=== PATIENT | female | born 1980 | race Caucasian/White ===

== ENCOUNTER → 2024-08-10 | Outpatient (CLI) | payer OTHER ==
--- NOTE | 2024-08-10 13:24 | USB ---
Reason for Exam: Clinical finding. Risk Values: Lucie 5 year model risk: 0.5%. NCI Lifetime model risk: 6.5%. Technique: Method: Targeted. Findings: The area of palpable concern of the left breast, the axilla of the left breast and the retroareolar of the left breast were scanned. No definitive solid or cystic masses are identified. The mammographic finding stereotactic core biopsy is advised. Overall Assessment: Suspicious, BI-RAD 4 Management: Stereotactic Core Biopsy of the left breast. A clinical breast exam by your physician is recommended on an annual basis and results should be correlated with mammographic findings. This exam should not preclude additional follow-up of suspicious palpable abnormalities. Results were given to the patient verbally at the time of exam. [facility], , 08/10/2024 1:21 PM. Electronically signed and approved by: Patricio Ryan M.D. Radiologis
== END | disposition home or self-care (01) ==
LOC: RADUSWWP 13:04
PROVIDERS: ATTEND Surgery
DX: N63.0 Unspecified lump in unspecified breast (principal)

== ENCOUNTER → 2024-08-10 | Outpatient (CLI) | payer OTHER ==
[2024-08-10 12:34] VITALS: BP 101/65; PULSE 85; RESP 17; TEMP 98.8
--- NOTE | 2024-08-10 12:50 | P.GSCN ---
History of Present Illness Consult date: 08/10/24 Reason for Consult: abnormal left breast mammogram Requesting physician: Anne Hunt History of present illness: Didi is a 44 year old female who is seen in consultation for Anne Hunt regarding a left breast 2 cm lesion seen on a bilateral mammogram on 06-21-24. Bilateral mammogram and right breast ultrasound were performed on 06-21-2024. The bilateral mammogram revealed a 2 cm round mass in the middle t hird of the left breast for which a left breast diagnostic mammogram and ultrasound were recommended. The reason for the right breast ultrasound was pain however nothing of concern was identified on the right breast ultrasound. Subsequently a left breast diagnostic mammogram and ultrasound were performed 06-28-2024. This revealed a persistent 2 cm ovoid mass in the middle third of the left breast upper outer quadrant, nothing of concern was noted on the ultrasound. The patient has had a mammogram last year which did not show anything of concern. She has had some tenderness in her right breast however the most recent radiograph revealed an area of concern in the left breast. She does not feel any lumps masses or nodules of concern in either breast. She is not complaining of any nipple discharge or skin changes. She has not had any recent trauma or infection in the breast. She has never had any breast biopsies or surgery on her breast. Caffeine: 3 44 oz pepsi/day nicotine: 1 PPD, smoking for over 20 years chocolate: occasional BCP: used for about 10 years hormones: does not take any, had a hysterectomy 2019 left ovaries Family History: maternal uncle" lung cancer Hormonal History: menarche: 13 , breast fed: yes, age at first : 21 hysterectomy in 2019 for irregular periods and pain no cancer left ovaries Surgical History: tubal hysterectomy Medical History: Psoriasis Asthma Depression Anxiety Social history: Nicotine: 1 pack/day for over 20 years Alcohol:nonedrugs: none Review of Systems - Constitutional Reports sweats - EENT Eyes: left blurred vision Ears: deny: decreased hearing, tinnitus Ears, nose, mouth and throat: Denies dysphagia - Breasts bilateral: as per HPI - Cardiovascular Cardiovascular Comment(s): saw music assistant high heart rate Reports shortness of breath, Denies chest pain - Respiratory Reports as per HPI - Gastrointestinal Reports as per HPI - Genitourinary Genitourinary: Denies dysuria, Denies hematuria Menstruation: Reports post hysterectomy - Musculoskeletal Reports as per HPI - Integumentary Integumentary Comment(s): psorasis - Neurological Denies headaches, Denies syncope - Psychiatric Reports anxiety, Reports depression - Endocrine Reports as per HPI - Hematologic/Lymphatic Reports as per HPI - Allergic/Immunologic Reports as per HPI Surgical - Exam - General moderate distress - Eyes normal ocular movement - ENT no hearing loss - Neck trachea midline - Respiratory normal respiratory effort - Cardiovascular Rhythm: regular Heart Sounds: normal: S1, S2 - Abdomen Abdomen: soft, non tender, no guarding, no rigid, no rebound - Integumentary normal turgor, multiple tattoos, bilateral nipple piercings - Neurologic no disoriented, no combative - Musculoskeletal normal gait - Psychiatric oriented to time, oriented to person, oriented to place, speech is normal, memory intact Breast Exam: BRA: 36C Inspection: Bilateral grade 2 ptosis, bilateral nipple piercing Palpation: Right breast: Multi positional exam dense fibrocystic breast changes no discrete dominant masses or nodules of concern Right axilla: No adenopathy of concern Left breast: Multi positional exam fibrocystic changes, increased nodularity approximately 2 cm in size at approximately the 1 o'clock position of the left breast Left axilla: No adenopathy of concern Results Bilateral mammogram and right breast ultrasound were performed on 06-21-2024. The bilateral mammogram revealed a 2 cm round mass in the middle third of the left breast for which a left breast diagnostic mammogram and ultrasound were recommended. The reason for the right breast ultrasound was pain however nothing of concern was identified on the right breast ultrasound. Subsequently a left breast diagnostic mammogram and ultrasound were performed 06-28-2024. This revealed a persistent 2 cm ovoid mass in the middle third of the left breast upper outer quadrant, nothing of concern was noted on the ultrasound. Assessment and Plan Assessment: Impression: Abnormal left breast mammogram from 06-21-2024 and 06-28-2024 Lesion of concern does not persist on ultrasound Palpable mass left breast in the upper outer quadrant area most likely corresponds to that seen on mammogram Plan: probable stero biopsy of the left breast
== END ==
LOC: WWCWWP 11:48
PROVIDERS: ATTEND Surgery

== ENCOUNTER → 2024-08-23 | Day surgery (SDC) | payer OTHER ==
[~2024-08-23] MED LIST: ALPRAZolam 0.25 MG TAB PO PRN; ALPRAZolam 0.5 MG TAB PO PRN
[2024-08-23 07:41] VITALS: PULSE 73; RESP 16
--- NOTE | 2024-08-23 08:46 | P.PCN ---
Date of Procedure: 08/23/24 Preoperative Diagnosis: abnormal left breast mammogram Postoperative Diagnosis: same Procedure(s) Performed: Left breast stereotactic core biopsy Anesthesia: local Surgeon: Mimi Mckeon Pathology: other (breast tissue) Condition: stable Disposition: same day Indications for Procedure: Abnormal left breast mammogram Operative Findings: Breast tissue Description of Procedure: The patient is a 44-year-old female who was noted to have an abnormal density in the left breast on mammogram. Nothing was seen on ultrasound at this site and it was recommended she undergo a stereotactic core biopsy. Of concern is the fact that the area is superficial. The patient was brought to the stereotactic core biopsy room following informed consent. A supervisor marble film was obtained. The area of concern was identified. The breast was prepped using chlorhexidine. 20 cc of 1% lidocaine were used to anesthetize the area of concern. A 16-gauge vacuum-assisted petite core rotating biopsy needle was driven to the correct coordinates. Needle was fired. A post fire film was obtained. The needle appeared to be in the correct location. 24 core biopsy specimens were obtained. A working clip was deployed. The clip appeared to be in the correct location. The specimen was sent to pathology. The patient will follow-up with Dr. Naranjo in 1 week.
[2024-08-23 08:58] VITALS: BP 118/83; TEMP 98.2
--- NOTE | 2024-08-23 12:37 | MM ---
Date of Procedure: 08/23/24 Preoperative Diagnosis: abnormal left breast mammogram Postoperative Diagnosis: same Procedure(s) Performed: Left breast stereotactic core biopsy Anesthesia: local Surgeon: Mimi Mckeon Pathology: other (breast tissue) Condition: stable Disposition: same day Indications for Procedure: Abnormal left breast mammogram Operative Findings: Breast tissue Description of Procedure: The patient is a 44-year-old female who was noted to have an abnormal density in the left breast on mammogram. Nothing was seen on ultrasound at this site and it was recommended she undergo a stereotactic core biopsy. Of concern is the fact that the area is superficial. The patient was brought to the stereotactic core biopsy room following informed consent. A basketball scout film was obtained. The area of concern was identified. The breast was prepped using chlorhexidine. 20 cc of 1% lidocaine were used to anesthetize the area of concern. A 16-gauge vacuum-assisted petite core rotating biopsy needle was driven to the correct coordinates. Needle was fired. A post fire film was obtained. The needle appeared to be in the correct location. 24 core biopsy specimens were obtained. A working clip was deployed. The clip appeared to be in the correct location. The specimen was sent to pathology. The patient will follow-up with Dr. Naranjo in 1 week. CHARLENE
== END ==
LOC: RADMAMWWP 07:26
PROVIDERS: ATTEND Surgery
DX: N60.12 Diffuse cystic mastopathy of left breast (principal)
CPT/HCPCS: 88305; 19081; A4648; J2003

== ENCOUNTER → 2025-02-28 | Outpatient (CLI) | payer OTHER ==
--- NOTE | 2025-02-28 13:16 | MM ---
Reason for Exam: Follow-up at short interval from prior study. Last screening mammogram was performed 8 month(s) ago. Patient History: Hysterectomy at age 39. 08/23/2024, Benign MG stereo VAD BX LT on the left side. Risk Values: Lucie 5 year model risk: 0.7%. NCI Lifetime model risk: 7.9%. Tissue Density: Left: The breasts are heterogeneously dense, which may obscure small masses. Findings: Analyzed By CAD. A biopsy clip in the left upper outer breast at site of 2.0 cm mass is redemonstrated. Posterior asymmetric tissue is redemonstrated. No suspicious new mass in the left breast. Overall Assessment: Benign, BI-RAD 2 Management: Screening Mammogram of both breasts in 4 months. Back on annual bilateral breast mammogram schedule.. Results were given to the patient verbally at the time of exam. Patient should continue monthly self-breast exams. A clinical breast exam by your physician is recommended on an annual basis. This exam should not preclude additional follow-up of suspicious palpable abnormalities. Note on Lucie scores and lifetime risk: 1. A Lucie score greater than 3% is considered moderate risk. If this is the case, consider specialist referral to assess eligibility for a risk reducing agent. 2. If overall lifetime risk for the development of breast cancer is 20% or higher, the patient may qualify for future screening with alternating mammogram and breast MRI. [facility], , 02/28/2025 1:14 PM. Electronically signed and approved by: Tony Kat M.D.
== END | disposition home or self-care (01) ==
LOC: RADMAMWWP 12:43
PROVIDERS: ATTEND Family Medicine
DX: R92.8 Other abnormal and inconclusive findings on diagnostic imaging of breast (principal); R92.332 Mammographic heterogeneous density, left breast
CPT/HCPCS: 77065; G0279; 77061